=== PATIENT | male | born 1955 | race Caucasian/White ===

== ENCOUNTER 2017-06-09 10:38 | Day surgery (SDC) | payer BC ==
[~2017-06-09 10:38] MED LIST: Lactated Ringers 1,000 ML IV SCH; ceFAZolin 2 GM in Premix Bag 1 BAG IV ONE
--- NOTE | 2017-06-09 11:04 | PCM.PREANE ---
Preanesthetic Assessment - Anesthesia/Transfusion/Family Hx Anesthesia History: Prior Anesthesia Without Reaction Family History of Anesthesia Reaction: No Transfusion History: No Prior Transfusion(s) - Review of Systems General: No Symptoms Pulmonary: No Symptoms Cardiovascular: No Symptoms Gastrointestinal: No Symptoms Neurological: No Symptoms Other: Reports: None - Physical Assessment NPO Status Date: 06/08/17 O2 Sat by Pulse Oximetry: 96 Respiratory Rate: 16 Vital Signs: Last Vital Signs Temp 36.4 C 06/09/17 10:59 Pulse 71 06/09/17 10:59 Resp 16 06/09/17 10:59 BP 136/76 06/09/17 10:59 Pulse Ox 96 06/09/17 10:59 Height: 1.85 m Weight: 90.718 kg ASA Class: 1 Mental Status: Alert & Oriented x3 Airway Class: Mallampati = 2 ROM/Head Extension: Full Lungs: Clear to Auscultation, Normal Respiratory Effort Cardiovascular: Regular Rate, Regular Rhythm - Allergies Allergies/Adverse Reactions: Allergies Allergy/AdvReac Type Severity Reaction Status Date / Time No Known Allergies Allergy Verified 06/06/17 15:04 - Blood Product(s) Available: None - Acknowledgements Anesthesia Type Planned: General Anesthesia Pt an Appropriate Candidate for the Planned Anesthesia: Yes Alternatives and Risks of Anesthesia Discussed w Pt/Guardian: Yes Pt/Guardian Understands and Agrees with Anesthesia Plan: Yes PreAnesthesia Questionnaire HEENT History: Reports: None Cardiovascular History: Reports: Other (See Below) Other Cardiovascular History: murmur as a child - Past Surgical History Head Surgeries/Procedures: Reports: None HEENT Surgical History: Reports: Oral Surgery Other HEENT Surgeries/Procedures: wisdom teeth extraction - SUBSTANCE USE Smoking Status *Q: Never Smoker Days Per Week of Alcohol Use: 7 Number of Drinks Per Day: 2 Total Drinks Per Week: 14 Recreational Drug Use History: No - HOME MEDS Home Medications: Home Meds Ibuprofen 400 mg PO ASDIRECTED PRN 06/06/17 [History] - CURRENT (IN HOUSE) MEDS Current Meds: Current Medications Lactated Ringer's (Ringers, Lactated) 1,000 mls @ 125 mls/hr IV ASDIRECTED BECK Discontinued Medications Cefazolin Sodium/Dextrose 2 gm (/ Premix) 50 mls @ 100 mls/hr IV ONETIME ONE Stop: 06/09/17 05:29
[2017-06-09] MEDS ORDERED: Lidocaine 2% 5 ML SDV ONE (12:15)
[2017-06-09] MEDS ORDERED: Ondansetron 4 MG/2 ML SDV ONE (12:15)
[2017-06-09] MEDS ORDERED: Dexamethasone 4 MG/ML 5 ML MDV ONE (12:15)
[2017-06-09] MEDS ORDERED: Rocuronium 10 MG/ML 10 ML Syringe ONE (12:15)
[2017-06-09] MEDS ORDERED: Midazolam 1 MG/ML 2 ML SDV ONE (12:16)
[2017-06-09] MEDS ORDERED: Propofol 200 MG/20 ML SDV ONE (12:16)
[2017-06-09] MEDS ORDERED: fentaNYL 100 MCG/2 ML SDV ONE (12:16)
[2017-06-09] MEDS ORDERED: Octyl 2-Cyanoacrylate 1 Tube ONE (12:45)
[2017-06-09] MEDS ORDERED: fentaNYL 100 MCG/2 ML SDV IVPUSH PRN (13:43)
[2017-06-09] MEDS ORDERED: Ketorolac 30 MG/ML SDV ONE (14:21)
--- NOTE | 2017-06-09 14:37 | PCM.OPNOTE ---
- General Post-Op/Procedure Note Date of Surgery/Procedure: 06/09/17 Operative Procedure(s): ing hernia rep w mesh, right Findings: large direct inguinal hernia on right, no indirect hernia; repair w mesh/plug; [id number] Pre Op Diagnosis: ing hernia right Post-Op Diagnosis: Same Anesthesia Technique: General ET Tube Primary Surgeon: Amadou Anderson Complications: None Condition: Good
[2017-06-09] MEDS ORDERED: Acetaminophen/oxyCODONE 325-7.5 MG Tab PO ONE (14:40)
--- NOTE | 2017-06-09 15:15 | PCM.POSTAN ---
POST ANESTHESIA ASSESSMENT - MENTAL STATUS Mental Status: Alert, Oriented - RESPIRATORY Respiratory Status: Respiratory Rate WNL, Airway Patent, O2 Saturation Stable - CARDIOVASCULAR CV Status: Pulse Rate WNL, Blood Pressure Stable - GASTROINTESTINAL GI Status: No Symptoms - POST OP HYDRATION Hydration Status: Adequate & Stable
--- NOTE | 2017-06-09 15:19 | PCM48HPAN ---
Post Anesthesia Note - EVALUATION WITHIN 48HRS OF ANESTHETIC Vital Signs in Normal Range: Yes Patient Participated in Evaluation: Yes Respiratory Function Stable: Yes Airway Patent: Yes Cardiovascular Function Stable: Yes Hydration Status Stable: Yes Pain Control Satisfactory: Yes Nausea and Vomiting Control Satisfactory: Yes Mental Status Recovered: Yes
[2017-06-09 15:56] VITALS: BP 126/69
--- NOTE | 2017-06-09 20:19 | OR ---
SURGEON: Amadou Anderson MD DATE OF PROCEDURE: 06/09/2017 PREOPERATIVE DIAGNOSIS: Inguinal hernia on the right. POSTOPERATIVE DIAGNOSIS: Inguinal hernia on the right. PROCEDURE PERFORMED: Repair with mesh and plug. COMPLICATIONS: None. FINDINGS: The patient has a very large direct inguinal hernia on the right and no indirect hernia and we repaired with mesh and used a large plug. PROCEDURE IN DETAIL: The patient was taken to the operating room and placed in the supine position. Upon induction of general endotracheal anesthesia, the patient's groin and inguinal area were prepped and draped in a sterile fashion. The scrotum was placed on top of the drape in case it needed to be maneuvered. An IV antibiotic was given prophylactically and after assessment of appropriate landmark, a transverse incision was made which was right in the middle of the external oblique and the internal oblique and the transverse incision was then carefully taken down past the Adam fascia and exposed the external oblique where the cord is. The external ring was also identified and using a 15 blade, a small radha was made right on top of the cord and then using a Metzenbaum scissors, carefully opened up the fiber along its direction all the way to the external ring. The spermatic cord was then carefully lifted up from the inguinal canal. A [place] drain was then used to hold on to manipulate the cord and carefully dissect out from the inguinal floor. The cremasteric muscle was then opened up. Careful examined of the cord, dissected down the cremasteric muscle, failed to delineate any indirect hernia sac. A large glistening whitish hernia sac in the medial anterior aspect of the floor, next to the cord was located. This was carefully dissected down all the way to the internal ring. A large plug was inserted into the direct hernia and followed with a mesh to reinforce the ing floor. The mesh was then anchored down by using 2-0 Prolene stitches to the periosteum of the pubic symphysis, then running down to the lateral aspect of the rectus muscle. The lateral part of the mesh was then anchored to the David ligament, again using 2-0 Prolene. The last few stitches also anchored the plug to make sure the plug is not migrating. There was one stitch placed at the end of the two tails. Where the cord exits out, a stitch was placed in the two tails to repair the internal ring. Upon conclusion of surgery, I used a finger to make sure the ring is not too tight and not too loose, followed with some irrigation. The external oblique was then repaired by use of 2-0 Vicryl and the recreation external ring was also tested, not too tight, not too loose, followed with 2-0 Vicryl and closed the Adam fascia and the skin stapled to approximate the skin, followed by appropriate dressing. The patient was then awakened, extubated and transferred to recovery room in a hemodynamically stable condition. The patient tolerated the procedure well. There were no intraoperative complications. Dr. Anderson was present through the whole procedure. Just before surgery, a timeout was called. The patient was identified and procedure identified and procedure started. As always, thank you for the kind referral. ABDULAZIZ CACERES /[id number]
== END 2017-06-09 16:33 | disposition home or self-care (01) ==
LOC: MW.SDS 10:38
PROVIDERS: ATTEND Surgery
DX: K40.90 Unilateral inguinal hernia, without obstruction or gangrene, not specified as recurrent (principal); Z79.899 Other long term (current) drug therapy; Z78.9 Other specified health status
CPT/HCPCS: 49505; C1781; J1100; J1885; J2250; J2405; J3010; J7120; 00830; A9270-GY; J2704

== ENCOUNTER 2018-01-20 06:40 | Day surgery (SDC) | payer BC ==
[2018-01-20] MEDS ORDERED: Bupivacaine 25%/EPINEPHrine/PF 30 ML ONE (07:21)
[2018-01-20] MEDS ORDERED: Lidocaine 2% 5 ML SDV ONE (07:21)
[2018-01-20] MEDS ORDERED: Ondansetron 4 MG/2 ML SDV ONE (07:21)
[2018-01-20] MEDS ORDERED: Rocuronium 10 MG/ML 10 ML Syringe ONE (07:21)
[2018-01-20] MEDS ORDERED: fentaNYL 250 MCG/5 ML SDV ONE (07:22)
[2018-01-20] MEDS ORDERED: Midazolam 1 MG/ML 2 ML SDV ONE (07:22)
[2018-01-20] MEDS ORDERED: Propofol 200 MG/20 ML SDV ONE (07:22)
[2018-01-20] MEDS ORDERED: Octyl 2-Cyanoacrylate 1 Tube ONE (07:23)
--- NOTE | 2018-01-20 07:36 | PCM.PREANE ---
Preanesthetic Assessment - Anesthesia/Transfusion/Family Hx Anesthesia History: Prior Anesthesia Without Reaction Family History of Anesthesia Reaction: No Transfusion History: No Prior Transfusion(s) - Review of Systems General: No Symptoms Pulmonary: No Symptoms Cardiovascular: No Symptoms Gastrointestinal: No Symptoms Neurological: No Symptoms Other: Reports: None - Physical Assessment NPO Status Date: 01/19/18 O2 Sat by Pulse Oximetry: 96 Respiratory Rate: 16 Vital Signs: Last Vital Signs Temp 36.3 C 01/20/18 06:58 Pulse 87 01/20/18 06:58 Resp 16 01/20/18 06:58 BP 103/70 01/20/18 06:58 Pulse Ox 96 01/20/18 06:58 Height: 1.93 m Weight: 95.254 kg ASA Class: 1 Mental Status: Alert & Oriented x3 Airway Class: Mallampati = 1 Dentition: Reports: Normal Dentition ROM/Head Extension: Full Lungs: Clear to Auscultation, Normal Respiratory Effort Cardiovascular: Regular Rate, Regular Rhythm - Allergies Allergies/Adverse Reactions: Allergies Allergy/AdvReac Type Severity Reaction Status Date / Time No Known Allergies Allergy Verified 01/18/18 08:18 - Anesthesia Plan Pre-Op Medication Ordered: None - Acknowledgements Anesthesia Type Planned: General Anesthesia Pt an Appropriate Candidate for the Planned Anesthesia: Yes Alternatives and Risks of Anesthesia Discussed w Pt/Guardian: Yes Pt/Guardian Understands and Agrees with Anesthesia Plan: Yes PreAnesthesia Questionnaire HEENT History: Reports: None Cardiovascular History: Reports: Other (See Below) Other Cardiovascular History: murmur as a child - Past Surgical History Head Surgeries/Procedures: Reports: None HEENT Surgical History: Reports: Oral Surgery Other HEENT Surgeries/Procedures: wisdom teeth extraction GI Surgical History: Reports: Hernia, Inguinal - SUBSTANCE USE Smoking Status *Q: Never Smoker Days Per Week of Alcohol Use: 7 Number of Drinks Per Day: 2 Total Drinks Per Week: 14 Recreational Drug Use History: No - HOME MEDS Home Medications: Home Meds Clotrimazole/Betamethasone Dip [Lotrisone Cream] 1 applic TOP ASDIRECTED PRN [History] - CURRENT (IN HOUSE) MEDS Current Meds: Current Medications Lactated Ringer's (Ringers, Lactated) 1,000 mls @ 125 mls/hr IV ASDIRECTED [facility] Last Admin: 01/20/18 07:06 Dose: 125 mls/hr Discontinued Medications Fentanyl (Sublimaze) Confirm Administered Dose 250 mcg .ROUTE .STK-MED ONE Stop: 01/20/18 07:23 Cefazolin Sodium/Dextrose 2 gm (/ Premix) 50 mls @ 100 mls/hr IV ONETIME ONE Stop: 01/19/18 05:29 Lactated Ringer's (Ringers, Lactated) 1,000 mls @ 125 mls/hr IV ASDIRECTED BECK Cefazolin Sodium/Dextrose 2 gm (/ Premix) 50 mls @ 100 mls/hr IV ONETIME ONE Stop: 01/20/18 05:29 Bupivacaine HCl/Epinephrine Bitart (Sensorc Mpf 0.25%-Epi 1:[id number]) Confirm Administered Dose 30 mls @ as directed .ROUTE .STK-MED ONE Stop: 01/20/18 07:22 Lidocaine (Xylocaine-Mpf 2%) Confirm Administered Dose 5 ml .ROUTE .STK-MED ONE Stop: 01/20/18 07:22 Midazolam HCl (Versed 1 Mg/Ml) Confirm Administered Dose 2 mg .ROUTE .STK-MED ONE Stop: 01/20/18 07:23 Octyl Cyanoacrylate (Dermabond Advance) Confirm Administered Dose 1 applic .ROUTE .STK-MED ONE Stop: 01/20/18 07:24 Ondansetron HCl (Zofran) Confirm Administered Dose 4 mg .ROUTE .STK-MED ONE Stop: 01/20/18 07:22 Propofol (Diprivan 20 Ml) Confirm Administered Dose 200 mg .ROUTE .STK-MED ONE Stop: 01/20/18 07:23 Rocuronium Brumley (Zemuron) Confirm Administered Dose 100 mg .ROUTE .STK-MED ONE Stop: 01/20/18 07:22
[2018-01-20] MEDS ORDERED: ceFAZolin/Dextrose,Iso-Osmotic 2 GM/50 ML Duplex Bag IV ONE (07:56)
[2018-01-20] MEDS ORDERED: Phenylephrine/Normal Saline 100 MCG/ML 10 ML Syringe ONE (08:05)
[2018-01-20] MEDS ORDERED: Ketorolac 30 MG/ML SDV ONE (08:30)
[2018-01-20] MEDS ORDERED: fentaNYL 100 MCG/2 ML SDV IVPUSH PRN (08:39)
[2018-01-20] MEDS ORDERED: ePHEDrine 50 MG/ML SDV ONE (08:53)
--- NOTE | 2018-01-20 09:37 | PCM.OPNOTE ---
- General Post-Op/Procedure Note Date of Surgery/Procedure: 01/20/18 Operative Procedure(s): ing hernia rep w mesh, L Findings: Left ing hernia repair; large direct hernia, no indirect, a large size mesh/ plug was used; [id number] Pre Op Diagnosis: l ing hernia Post-Op Diagnosis: Same Anesthesia Technique: General ET Tube Primary Surgeon: Amadou Anderson Complications: None Condition: Good
--- NOTE | 2018-01-20 10:51 | PCM48HPAN ---
Post Anesthesia Note - EVALUATION WITHIN 48HRS OF ANESTHETIC Vital Signs in Normal Range: Yes Patient Participated in Evaluation: Yes Respiratory Function Stable: Yes Airway Patent: Yes Cardiovascular Function Stable: Yes Hydration Status Stable: Yes Pain Control Satisfactory: Yes Nausea and Vomiting Control Satisfactory: Yes Mental Status Recovered: Yes Resp Rate: 14
[2018-01-20 11:25] VITALS: BP 118/67
--- NOTE | 2018-01-20 15:39 | OR ---
SURGEON: Amadou Anderson MD DATE OF PROCEDURE: 01/20/2018 PREOPERATIVE DIAGNOSIS: Inguinal hernia on the left. POSTOPERATIVE DIAGNOSIS: Inguinal hernia on the left. PROCEDURE PERFORMED: Repair with mesh and plug. COMPLICATIONS: None. FINDINGS: Very large direct inguinal hernia and no indirect inguinal hernia. A large- sized plug was inserted. PROCEDURE PERFORMED: The patient was taken to the operating room and placed in the supine position. Upon induction of general endotracheal anesthesia, the patient's groin and inguinal area were prepped and draped in a sterile fashion. The scrotum was placed on top of the drape in case it needed to be maneuvered. An IV antibiotic was given prophylactically and after assessment of appropriate landmark, a transverse incision was made above the inguinal ligament and then carefully taken down past the Adam fascia and exposed the external oblique where the cord is. The external ring was also identified and using a 15 blade, a small rahda was made right on top of the cord and then using a Metzenbaum scissors, carefully opened up the fiber along its direction all the way to the external ring. The spermatic cord was then carefully lifted up from the inguinal canal. A [place] drain was then used to hold on to manipulate the cord and carefully dissect out from the inguinal floor. The cremasteric muscle was then opened up. Careful examination of the cord after dissecting the cord, failed to find any hernia\sac. There is no indirect hernia. There is a weakening of the inguinal floor, agreed with a direct hernia. A large size plug was placed into the hernia. Custom fit mesh was then used to reinforce the inguinal floor. The mesh was then anchored down by using 2-0 Prolene stitches to the periosteum of the pubic symphysis, then running down to the lateral aspect of the rectus muscle. The lateral part of the mesh was then anchored to the David ligament, again using 2 - 0 Prolene. The last few stitches also anchored the plug to make sure the plug is not migrating. There was one stitch placed at the end of the two tails. Where the cord exits out, a stitch was placed in the two tails to repair the internal ring. Upon conclusion of surgery, I used a finger to make sure the ring is not too tight and not too loose, followed with some irrigation. The external oblique was then repaired by use of 2-0 Vicryl and the recreation external ring was also tested, not too tight, not too loose, followed with 2-0 Vicryl and closed the Adam fascia and the skin stapled to approximate the skin, followed by appropriate dressing. The patient was then awakened, extubated and transferred to recovery room in a hemodynamically stable condition. The patient tolerated the procedure well. There were no intraoperative complications. Dr. Anderson was present through the whole procedure. Just before surgery, a timeout was called. The patient was identified and procedure identified and procedure started. As always, thank you for the kind referral. ABDULAZIZ CACERES /[id number] ENEIDA
== END 2018-01-20 12:01 | disposition home or self-care (01) ==
LOC: MW.SDS 06:40
PROVIDERS: ATTEND Surgery
DX: K40.90 Unilateral inguinal hernia, without obstruction or gangrene, not specified as recurrent (principal)
CPT/HCPCS: 49505; J0690; J1885; J2250; J2405; J3010; J7120; A9270-GY; J2704

== ENCOUNTER 2021-03-18 06:33 | Day surgery (SDC) | payer BC ==
[~2021-03-18 06:33] MED LIST changes: -ceFAZolin 2 GM in Premix Bag 1 BAG IV ONE
--- NOTE | 2021-03-18 06:46 | PCM.PREANE ---
Preanesthetic Assessment - Anesthesia/Transfusion/Family Hx Anesthesia History: Prior Anesthesia Without Reaction Transfusion History: No Prior Transfusion(s) - Review of Systems General: No Symptoms Pulmonary: No Symptoms Cardiovascular: No Symptoms Gastrointestinal: No Symptoms Neurological: No Symptoms Other: Reports: None - Physical Assessment NPO Status Date: 03/18/21 NPO Status Time: 00:00 Height: 6 ft 1.5 in Weight: 200 lb ASA Class: 1 Mental Status: Alert & Oriented x3 Dentition: Reports: Normal Dentition ROM/Head Extension: Full Lungs: Clear to Auscultation, Normal Respiratory Effort Cardiovascular: Regular Rate, Regular Rhythm - Allergies Allergies/Adverse Reactions: Allergies Allergy/AdvReac Type Severity Reaction Status Date / Time No Known Allergies Allergy Verified 03/16/21 08:11 - Acknowledgements Anesthesia Type Planned: General Anesthesia Pt an Appropriate Candidate for the Planned Anesthesia: Yes Alternatives and Risks of Anesthesia Discussed w Pt/Guardian: Yes Pt/Guardian Understands and Agrees with Anesthesia Plan: Yes PreAnesthesia Questionnaire HEENT History: Reports: Other (See Below) Other HEENT History: wears glasses Cardiovascular History: Reports: Other (See Below) Other Cardiovascular History: murmur as a child Respiratory History: Reports: None Gastrointestinal History: Reports: None Genitourinary History: Reports: None Musculoskeletal History: Reports: None Neurological History: Reports: None Psychiatric History: Reports: None Endocrine/Metabolic History: Reports: None Hematologic History: Reports: None Immunologic History: Reports: None Oncologic (Cancer) History: Reports: None Dermatologic History: Reports: None - Past Surgical History Head Surgeries/Procedures: Reports: None HEENT Surgical History: Reports: Oral Surgery Other HEENT Surgeries/Procedures: wisdom teeth extraction Cardiovascular Surgical History: Reports: None Respiratory Surgical History: Reports: None GI Surgical History: Reports: Colonoscopy, Hernia, Inguinal Male Surgical History: Reports: None Endocrine Surgical History: Reports: None Neurological Surgical History: Reports: None Musculoskeletal Surgical History: Reports: None Oncologic Surgical History: Reports: None Dermatological Surgical History: Reports: None - SUBSTANCE USE Tobacco Use Status *Q: Never Tobacco User Days Per Week of Alcohol Use: 7 Number of Drinks Per Day: 1 Total Drinks Per Week: 7 - HOME MEDS Home Medications: Home Meds . [No Known Home Meds] 03/16/21 [History] - CURRENT (IN HOUSE) MEDS Current Meds: Current Medications Lactated Ringer's (Ringers, Lactated) 1,000 mls @ 125 mls/hr IV ASDIRECTED BECK
[2021-03-18] MEDS ORDERED: Propofol 200 MG/20 ML SDV ONE (07:13)
[2021-03-18] MEDS ORDERED: Lidocaine 2% 5 ML SDV ONE (07:17)
--- NOTE | 2021-03-18 08:10 | PCM.POSTAN ---
POST ANESTHESIA ASSESSMENT - MENTAL STATUS Mental Status: Alert, Oriented - VITAL SIGNS Vital Signs: Last Vital Signs Temp 97.0 F 03/18/21 07:05 Pulse 75 03/18/21 07:05 Resp 16 03/18/21 07:05 BP 128/76 03/18/21 07:05 Pulse Ox 93 L 03/18/21 07:05 - RESPIRATORY Respiratory Status: Respiratory Rate WNL, Airway Patent, O2 Saturation Stable - CARDIOVASCULAR CV Status: Pulse Rate WNL, Blood Pressure Stable - GASTROINTESTINAL GI Status: No Symptoms - POST OP HYDRATION Hydration Status: Adequate & Stable
--- NOTE | 2021-03-18 08:10 | PCM48HPAN ---
Post Anesthesia Note - EVALUATION WITHIN 48HRS OF ANESTHETIC Vital Signs in Normal Range: Yes Patient Participated in Evaluation: Yes Respiratory Function Stable: Yes Airway Patent: Yes Cardiovascular Function Stable: Yes Hydration Status Stable: Yes Pain Control Satisfactory: Yes Nausea and Vomiting Control Satisfactory: Yes Mental Status Recovered: Yes Vital Signs: Last Vital Signs Temp 97.0 F 03/18/21 07:05 Pulse 75 03/18/21 07:05 Resp 16 03/18/21 07:05 BP 128/76 03/18/21 07:05 Pulse Ox 93 L 03/18/21 07:05
--- NOTE | 2021-03-18 08:19 | PCM.OPNOTE ---
- General Post-Op/Procedure Note Date of Surgery/Procedure: 03/18/21 Findings: see [id number] Pre Op Diagnosis: scrn colonoscopy Post-Op Diagnosis: colon polyp and diverticulosis Anesthesia Technique: Moderate Sedation Primary Surgeon: Amadou Anderson Pathology: polyps at 30cm went in, and 90cm, 90cm, 15cm when came out Complications: None Condition: Good
[2021-03-18 08:55] VITALS: BP 112/69; PULSE 64
--- NOTE | 2021-03-18 15:28 | OR ---
SURGEON: Amadou Anderson MD DATE OF PROCEDURE: 03/18/2021 PREOPERATIVE DIAGNOSIS: Screening colonoscopy. POSTOPERATIVE DIAGNOSIS: Colon polyp and diverticulosis. PROCEDURE PERFORMED: Colonoscopy with snare polypectomy. DESCRIPTION OF PROCEDURE: The patient was taken to the endoscopy room. A time out was called, patient identified, and procedure identified. Diprivan was then administrated. Patient went from awake to sleep, hearing doctor talking or door closing is normal. Perineum inspection and digital examination were then performed. A well- lubricated colonoscope was gently inserted through the rectum, advanced past the rectosigmoid junction, the descending colon, splenic flexure, transverse colon, hepatic flexure, ascending colon, arrived to the cecum. Cecum was identified as dictated in the finding. Then the scope was carefully withdrawn while attention was paid to the mucosal surface for any abnormality. Air will be sucked out during the scope withdrawal. At the rectum, retroflexed to examine any rectal diseases, fistula or hemorrhoids. During mucosal examination, abnormality or polyp encountered. Using snare equipment, the abnormality or the polyp was then snared off using electrocautery. The patient tolerated procedure well. There were no intraoperative complications, and Dr. Anderson was present throughout the whole procedure. FINDINGS: 1. The patient is easily sedated with FERMENTER CHAMPAGNE and Diprivan. The patient is soundly snoring. 2. Bowel prep is left to be desirable. It is really not very bad, but some stool ball and quite a lot of opaque semi-formed liquid stool and required a lot of irrigation. Colon rather straightforward. Cecum is indicated by ileocecal fold, one-to-one indentation, appendiceal orifice and light admittance, and ScopeGuide is pointing south. Mucosa examined upon scope pulling out with constant irrigation because of the stool ball and liquid stool. The patient has four polyps. They were all very small except the first one is 5 mm at distance 30 cm when the scope went in. That one was snared and captured, and then three more, a 2 mm at distance 90 and a 5 mm at distance 90, and a 2 mm at distance 15 when the scope come out, so the first one was when the scope go in and the last three when the scope came out. The patient also has diverticulosis at the left colon, very mild. No signs or symptoms of diverticulitis. No other mass, growth, inflammation, stricture, AV malformation, bleeding, ulcer, none of those. The patient has some mild external hemorrhoids and mild internal hemorrhoids. The patient would benefit from repeat colonoscopy in 18 months from today or depends on the pathology of the polyps. As always, thank you for the kind referral. ABDULAZIZ CACERES /[id number]
== END 2021-03-18 09:10 | disposition home or self-care (01) ==
LOC: MW.SDS 06:33
PROVIDERS: ATTEND Surgery
DX: Z12.11 Encounter for screening for malignant neoplasm of colon (principal); D12.6 Benign neoplasm of colon, unspecified; K57.30 Diverticulosis of large intestine without perforation or abscess without bleeding; K64.4 Residual hemorrhoidal skin tags; K64.8 Other hemorrhoids
CPT/HCPCS: 45385; 88305; J2704; J7120